=== PATIENT | female | born 1960 | race African-American/Black ===

== ENCOUNTER 2016-12-02 14:46 | Emergency (ER) | payer OTHER ==
[~2016-12-02] VITALS: Ht 165.1 cm; Wt 81.8 kg
[~2016-12-02 14:46] MED LIST: AMLO-511 PO; ASPI-1093 PO; CARI250T PO; CARV12 PO; HYDR-3965 PO; LOSA50TA37 PO; METF500T4 PO; PANT20TA12 PO
[2016-12-02 15:07] LABS: GLUCOSE,POINT OF CARE 112 MG/DL (70-110)
[2016-12-02] MEDS ORDERED: KETOROLAC TROMETHAMINE 60 MG/2 ML VIAL IM ONE (18:00)
[2016-12-02 19:28] VITALS: BP 136/76
== END 2016-12-02 19:36 | disposition home or self-care (01) ==
LOC: EMS 14:49
DX: G56.01 Carpal tunnel syndrome, right upper limb (principal); E11.9 Type 2 diabetes mellitus without complications; K21.9 Gastro-esophageal reflux disease without esophagitis; I10 Essential (primary) hypertension; F17.210 Nicotine dependence, cigarettes, uncomplicated; Z79.82 Long term (current) use of aspirin
CPT/HCPCS: 82962; 96372; 99283; J1885

== ENCOUNTER 2017-01-09 03:46 | Emergency (ER) | payer OTHER ==
[~2017-01-09] VITALS: Ht 167.6 cm; Wt 77.3 kg
[~2017-01-09 03:46] MED LIST changes: -HYDR-3965 PO
[2017-01-09] MEDS ORDERED: HYDROCODONE/ACETAMINOPHEN 5-325 MG TABLET PO ONE (05:00)
[2017-01-09] MEDS ORDERED: PROPARACAINE HCL 0.5% 15 ML OPHTHALMIC SOLUTION OU ONE (05:00)
[2017-01-09 05:11] VITALS: BP 183/103
== END 2017-01-09 05:22 | disposition home or self-care (01) ==
LOC: EMS 03:47
DX: S05.01XA Injury of conjunctiva and corneal abrasion without foreign body, right eye, initial encounter (principal); E11.9 Type 2 diabetes mellitus without complications; K21.9 Gastro-esophageal reflux disease without esophagitis; I10 Essential (primary) hypertension; F17.210 Nicotine dependence, cigarettes, uncomplicated; X58.XXXA Exposure to other specified factors, initial encounter; Y93.89 Activity, other specified; Y92.89 Other specified places as the place of occurrence of the external cause; Y99.8 Other external cause status
CPT/HCPCS: 99173; 99283; 99406

== ENCOUNTER → 2017-11-19 | Emergency (ER) | payer OTHER ==
[~2017-11-19] VITALS: Ht 165.1 cm; Wt 83.6 kg
[~2017-11-19] MED LIST changes: -ASPI-1093 PO; +ASPI-1182 PO; +DiphenhydrAMINE HCL 25 MG CAPSULE PO ONE; +ERYTHROMYCIN 0.5% 3.5 GM TUBE OPHTHALMIC OINTMENT OS ONE; +HYDROCORTISONE 1% 1.5 GM CREAM TP ONE; +PROPARACAINE/FLUORESCEIN SOD 0.5-0.25% 0.5 ML OPHTHALMIC SOLUTION OU ONE
[2017-11-19 12:22] LABS: GLUCOSE,POINT OF CARE 189 MG/DL (70-110)
[2017-11-19 14:54] VITALS: BP 155/83
== END | disposition home or self-care (01) ==
LOC: EMS 12:10
DX: S05.02XA Injury of conjunctiva and corneal abrasion without foreign body, left eye, initial encounter (principal); L25.9 Unspecified contact dermatitis, unspecified cause; H10.212 Acute toxic conjunctivitis, left eye; E11.9 Type 2 diabetes mellitus without complications; I10 Essential (primary) hypertension; K21.9 Gastro-esophageal reflux disease without esophagitis; F17.210 Nicotine dependence, cigarettes, uncomplicated; Z79.82 Long term (current) use of aspirin; X58.XXXA Exposure to other specified factors, initial encounter; Y93.89 Activity, other specified; Y92.098 Other place in other non-institutional residence as the place of occurrence of the external cause; Y99.8 Other external cause status
CPT/HCPCS: 82962; 99284; 99406; Z7610

== ENCOUNTER 2018-04-17 22:27 | Emergency (ER) | payer OTHER ==
[~2018-04-17] VITALS: Ht 165.1 cm; Wt 84.5 kg
[~2018-04-17 22:27] MED LIST changes: -DiphenhydrAMINE HCL 25 MG CAPSULE PO ONE; -ERYTHROMYCIN 0.5% 3.5 GM TUBE OPHTHALMIC OINTMENT OS ONE; -HYDROCORTISONE 1% 1.5 GM CREAM TP ONE; -METF500T4 PO; +METF500T6 PO; -PROPARACAINE/FLUORESCEIN SOD 0.5-0.25% 0.5 ML OPHTHALMIC SOLUTION OU ONE
[2018-04-17 23:04] LABS: GLUCOSE,POINT OF CARE 121 MG/DL (70-110)
[2018-04-18] MEDS ORDERED: PROPARACAINE/FLUORESCEIN SOD 0.5-0.25% 0.5 ML OPHTHALMIC SOLUTION OU ONE (01:15)
[2018-04-18] MEDS ORDERED: ERYTHROMYCIN 0.5% 3.5 GM TUBE OPHTHALMIC OINTMENT OD ONE (01:45)
[2018-04-18 02:05] VITALS: BP 140/74
== END 2018-04-18 02:34 | disposition home or self-care (01) ==
LOC: EMS 22:29
DX: S05.01XA Injury of conjunctiva and corneal abrasion without foreign body, right eye, initial encounter (principal); E11.9 Type 2 diabetes mellitus without complications; K21.9 Gastro-esophageal reflux disease without esophagitis; I10 Essential (primary) hypertension; G89.29 Other chronic pain; F17.210 Nicotine dependence, cigarettes, uncomplicated; Z79.82 Long term (current) use of aspirin; Z79.84 Long term (current) use of oral hypoglycemic drugs; W22.8XXA Striking against or struck by other objects, initial encounter; Y93.89 Activity, other specified; Y92.89 Other specified places as the place of occurrence of the external cause; Y99.8 Other external cause status
CPT/HCPCS: 82962; 99283; 99406; Z7610